=== PATIENT | female | born 1950 ===

== ENCOUNTER 2020-11-09 07:46 | Day surgery (SDC) | payer MEDICARE ==
[2020-11-04 11:29] LABS: Hematocrit 36.2 % (30.3-42.9); Hemoglobin 12.1 gm/dl (10.1-14.3); Mean Corpuscular HGB Conc 33 % (30-34); Mean Corpuscular Volume 97 fl (79-97); Platelet Count 104 K/mm3 (140-440); Red Blood Count 3.72 M/mm3 (3.65-5.03); Red Cell Distribution Width 14.7 % (13.2-15.2)
[~2020-11-09 07:46] MED LIST: LIDOCAINE MPF (2%) 20 MG/1 ML VIAL 5 ML ONE; ceFAZolin/STERILE WATER 2 GM/20 ML SYRINGE IV NR; fentaNYL 100 MCG/2 ML INJ ONE; propofoL 200 MG/20 ML VIAL IV ONE
[2020-11-09] MEDS ORDERED: LIDOCAINE (1%) 10 MG/1 ML VIAL 20 ML MDV ONE ×2 (08:32→11:42)
[2020-11-09] MEDS ORDERED: LACTATED RINGERS 1,000 ML ONE ×2 (09:10→11:42)
[2020-11-09] MEDS ORDERED: ONDANSETRON 4 MG/2 ML INJ IV PRN (09:51)
[2020-11-09] MEDS ORDERED: HYDROmorphone 1 MG/1 ML INJ IV PRN ×2 (09:51→10:30)
[2020-11-09] MEDS ORDERED: MAGNESIUM OXIDE 400 MG TAB PO NR (09:52)
[2020-11-09] MEDS ORDERED: ACETAMINOPHEN 325 MG TAB PO NR (09:52)
--- NOTE | 2020-11-09 09:52 | Anesthesia Day of Surgery ---
Anesthesia Day of Surgery - Day of Surgery Patient Examined: Yes Patient H&P Reviewed: Yes Patient is NPO: Yes Cardiac Clearance: Yes (+PCP clearance)
--- NOTE | 2020-11-09 09:54 | Anesthesia Consultation ---
Anesthesia Consult and Med Hx Date of service: 11/09/20 - Airway Anesthetic Teeth Evaluation: Crowns ROM Head & Neck: Adequate Mental/Hyoid Distance: Adequate Mallampati Class: Class II Intubation Access Assessment: Good - Pre-Operative Health Status ASA Pre-Surgery Classification: ASA2 Proposed Anesthetic Plan: General - Pulmonary Hx Respiratory Symptoms: No (+2FS; walks one mile) - Central Nervous System Hx Neuromuscular Disorder: Yes (Fibromyalgia) Hx Psychiatric Problems: Yes (Anxiety) - Gastrointestinal Hx Ulcer: Yes (GASTRIC ULCER) - Endocrine Hx Thyroid Disease: Yes (Nodules) - Other Systems Hx Alcohol Use: No Hx Substance Use: No Hx Cancer: No
[2020-11-09] MEDS ORDERED: CELECOXIB 200 MG CAP PO NR (10:00)
[2020-11-09] MEDS ORDERED: MIDAZOLAM 2 MG/2 ML INJ IV NR (10:00)
[2020-11-09] MEDS ORDERED: LACTATED RINGERS 1,000 ML IV SCH (10:00)
[2020-11-09] MEDS ORDERED: WATER FOR IRRIG STERILE 1,500 ML BOTTLE IR ONE (11:05)
--- NOTE | 2020-11-09 11:07 | Mammography Report ---
MAMMOGRAPHIC GUIDED LEFT BREAST NEEDLE LOCALIZATION, 11/09/2020 CLINICAL INFORMATION / INDICATION: LT BREAST MASS. COMPARISON: Mammogram from 10/28/2020 PROCEDURE: Risks, benefits and indications to the procedure were discussed with the patient. The patient agreed to proceed with both verbal and written consent. A timeout procedure was performed with 2 patient sophie ntifiers. The breast was prepped in the usual sterile fashion. Approximately 5cc of Lidocaine was used for loca l anesthesia. Under direct digital mammographic guidance, a localization wire was placed in satisfact ory position with distal tip traversing the targeted area. Post-procedure mammogram confirms satisfac tory positioning of the localization wire. The wire was secured to the skin with a sterile dressing. The patient tolerated procedure without difficulty. No complications were encountered. IMPRESSION: 1. Satisfactory mammographic guided wire localization. Signer Name: Tal Spencer MD Signed: 11/09/2020 11:03 AM Workstation Name: [id number]
[2020-11-09] MEDS ORDERED: BUPIVACAINE/PF (0.25%) 2.5 MG/ML 30 ML VIAL INFILTRATI ONE (11:42)
[2020-11-09] MEDS ORDERED: BACITRACIN ZINC OINT 28.4 GM TP ONE ×2 (11:42→11:47)
[2020-11-09] MEDS ORDERED: ONDANSETRON 4 MG/2 ML INJ ONE (11:48)
--- NOTE | 2020-11-09 12:03 | Operative Report ---
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 Recommendations are to proceed with left breast excisional biopsy to rule out malignancy. given high breast cancer risk association. She wished to proceed with the above procedure. Procedure in detail: The patient was taken to radiology for wire placement for localization known area of concern. Patient was then taken to the operating room. Gen. anesthesia was administered. Left breast and axilla were prepped and draped in the normal sterile operative fashion. The wire was identified. Timeout was performed. Attention was then taken towards the left breast. Lateral breast incision was made around the 3:00 position with a 15 blade knife and dissection taken down to subcutaneous tissues. First began raising of the medical flap with removal of the wire from the skin with dissection taken down posteriorly past the wire, followed by raising of the inferior flap, superior flap and lateral flap with all flaps taken down posteriorly past the wire. The breast area of concern was appropriately removed posteriorly with the aid of the Bovie cautery. The wire was not encountered. Specimen was marked and then sent to pathology and radiology; radiograph specimen with wire and clip present. Breast cavity was irrigated and hemostasis was obtained. The posterior deep breast tissues were approximated and closed using interrupted 3-0 Vicryl. The subcutaneous tissues were approximated and closed using interrupted 3-0 Vicryl followed by closing of the skin with a running 4-0 Monocryl and skin affix. The patient tolerated surgery very well and she was awaken from anesthesia without any complication and transported to PACU in good condition.
--- NOTE | 2020-11-09 12:07 | Short Stay Summary ---
Short Stay Documentation Date of service: 11/09/20 - History H&P: obtained from office - Allergies and Medications Current Medications: Allergies No Known Allergies Allergy (Verified 11/03/20 15:01) Home Medications Medication Instructions Recorded Confirmed Last Taken Type Alendronate Sodium [Fosamax] 70 mg PO QWEEK 11/03/20 11/09/20 11/07/20 09:00 History Aspirin [Adult Aspirin] 81 mg PO DAILY 11/03/20 11/09/20 11/04/20 09:00 History [place]-3S/Dha/Epa/Fish Oil [Fish 1 each PO DAILY 11/03/20 11/09/20 11/08/20 09:00 History Oil 1,200 mg Softgel] RX: Buspirone HCl 7.5 mg PO DAILY 11/03/20 11/09/20 11/09/20 05:00 History RX: Ibuprofen [Motrin 800 MG tab] 800 mg PO Q8HR PRN #12 tablet 11/09/20 Unknown Rx Active Medications Cefazolin Sodium (Cefazolin/Sterile Water 2 Gm/20 Ml Syringe) 2 gm IV PREOP NR Stop: 11/09/20 23:59 Celecoxib (Celecoxib 200 Mg Cap) 200 mg PO PREOP NR Stop: 11/09/20 20:00 Last Admin: 11/09/20 10:00 Dose: 200 mg Documented by: Hydromorphone HCl (Hydromorphone 1 Mg/1 Ml Inj) 0.25 mg IV Q10MIN PRN PRN Reason: Pain, Moderate (4-6) Stop: 11/09/20 23:00 Hydromorphone HCl (Hydromorphone 1 Mg/1 Ml Inj) 0.5 mg IV Q10MIN PRN PRN Reason: Pain , Severe (7-10) Stop: 11/09/20 23:00 Lactated Ringer's (Lactated Ringers) 1,000 mls @ 100 mls/hr IV DIRECT JASMINE Last Admin: 11/09/20 09:15 Dose: 100 mls/hr Documented by: Midazolam HCl (Midazolam 2 Mg/2 Ml Inj) 2 mg IV PREOP NR Stop: 11/09/20 23:59 Last Admin: 11/09/20 10:05 Dose: 2 mg Documented by: Ondansetron HCl (Ondansetron 4 Mg/2 Ml Inj) 4 mg IV ONCE PRN PRN Reason: Nausea And Vomiting Stop: 11/09/20 20:00 - Brief post op/procedure progress note Date of procedure: 11/09/20 Pre-op diagnosis: 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 Post-op diagnosis: same Procedure: Left breast mass excisional biopsy of UOQ Anesthesia: GETA Findings: Left wire and clip present Surgeon: BEKA GORDON Estimated blood loss: minimal Pathology: list Specimen disposition: to lab Condition: stable - Disposition Condition at discharge: Good Disposition: DC-01 TO HOME OR SELFCARE Short Stay Discharge Plan Activity: other (no heavy lifting) Diet: regular Wound: keep clean and dry (wear breast binder; apply bacitracin to incision twice daily; no baths; may shower in 48 hours) Follow up with: BEKA GORDON MD [Staff Physician] - 7 Days Prescriptions: RX: Ibuprofen [Motrin 800 MG tab] 800 mg PO Q8HR PRN #12 tablet PRN Reason: Pain , Severe (7-10)
[2020-11-09] MEDS ORDERED: oxyCODONE /ACETAMINOPHEN 5-325MG TAB ONE (12:08)
[2020-11-09] MEDS ORDERED: oxyCODONE /ACETAMINOPHEN 5-325MG TAB PO ONE (12:10)
--- NOTE | 2020-11-09 15:09 | Mammography Report ---
MAMMOGRAPHY WIRE LOCALIZATION SPECIMEN OF THE RIGHT BREAST INDICATION: Patient had wire localization earlier today, current exam is to evaluate specimen. COMPARISON: Earlier today FINDINGS: SPECIMEN RADIOGRAPH: The previously localized target area is present in its entirety in the submitted specimen. The localization wire is present. IMPRESSION: Radiographic evidence of satisfactory excision of the target area. Signer Name: Tal Spencer MD Signed: 11/09/2020 3:04 PM Workstation Name: [id number]
--- NOTE | 2020-11-09 18:02 | Post Anesthesia Evaluation ---
- Post Anesthesia Evaluation Patient Participated: Yes Airway Patent: Yes Stable Respiratory Function: Yes Nausea/Vomiting: No Temp > 96.8F: Yes Pain Manageable: Yes Adequeate Hydration: Yes Anesthesia Complications: No Block Receding Appropriately: Not Applicable Patient on Ventilator: No
[2020-11-09 19:00] VITALS: BP 123/76
== END 2020-11-09 07:47 | disposition home or self-care (01) ==
LOC: OR 07:46
PROVIDERS: ATTEND Surgery
DX: N63.21 Unspecified lump in the left breast, upper outer quadrant (principal); N60.82 Other benign mammary dysplasias of left breast; Z20.822 Contact with and (suspected) exposure to COVID-19; M79.7 Fibromyalgia; M19.90 Unspecified osteoarthritis, unspecified site; F41.9 Anxiety disorder, unspecified; Z98.890 Other specified postprocedural states; Z79.899 Other long term (current) drug therapy; Z79.82 Long term (current) use of aspirin; Z98.42 Cataract extraction status, left eye; Z90.49 Acquired absence of other specified parts of digestive tract; Z90.710 Acquired absence of both cervix and uterus; Z80.3 Family history of malignant neoplasm of breast
CPT/HCPCS: 19125; 19281; 36415; 76098; 85027; 88307; A4648; J0690; J2250; J2405; J2704; J3010; J7120; U0003; 88341; 88342